=== PATIENT | female | born 1970 | race American Indian/Alaskan Native ===

== ENCOUNTER 2020-06-27 21:16 | Emergency (ER) | payer MEDICARE, MEDICAID ==
[~2020-06-27] VITALS: Ht 165.1 cm; Wt 77.3 kg
[2020-06-27 21:31] VITALS: BP 154/91
== END 2020-06-28 00:21 | disposition home or self-care (01) ==
LOC: ER 21:17
DX: B34.9 Viral infection, unspecified (principal); Z20.822 Contact with and (suspected) exposure to COVID-19; R50.9 Fever, unspecified; R51.9 Headache, unspecified
CPT/HCPCS: 87635; 99283; C9803

== ENCOUNTER 2022-08-21 20:32 | Emergency (ER) | payer MEDICARE, MEDICAID ==
[~2022-08-21] VITALS: Ht 165.1 cm; Wt 86.4 kg
[2022-08-21 22:35] VITALS: BP 135/88
== END 2022-08-21 22:36 | disposition home or self-care (01) ==
LOC: ER 20:33
DX: R51.9 Headache, unspecified (principal); R55 Syncope and collapse
CPT/HCPCS: 70450; 99284

== ENCOUNTER 2022-09-01 05:33 | Emergency (ER) | payer MEDICARE, MEDICAID ==
[~2022-09-01] VITALS: Ht 165.1 cm; Wt 84.1 kg
[2022-09-01] MEDS ORDERED: dexamethasone sod phosphate 10mg/ml inj IV STA (07:01)
[2022-09-01] MEDS ORDERED: ketorolac trometh. 30mg/ml inj. IV ONE (07:05)
[2022-09-01] MEDS ORDERED: LORazepam 2 mg/ml vial IV ONE (07:05)
[2022-09-01] MEDS ORDERED: clindamycin-Cleocin 900mg/D5W 50 ML IV ONE (07:05)
[2022-09-01 07:57] LABS: BASOPHILS # (AUTO) 0.1 X10'3 (0-0.2); BASOPHILS % (AUTO) 0.9 % (0-1); EOSINOPHILS # (AUTO) 0.2 X10'3 (0-0.9); EOSINOPHILS % (AUTO) 2.1 % (0-6); HEMATOCRIT 41.6 % (35.0-45.0); HEMOGLOBIN 13.9 g/dl (12.0-16.0); LYMPHOCYTES # (AUTO) 2.8 X10'3 (1.1-4.8); LYMPHOCYTES % (AUTO) 31.8 % (21-51); MEAN CORPUSCULAR HEMOGLOBIN 29.8 PG (27.0-31.0); MEAN CORPUSCULAR HGB CONC 33.4 g/dL (33.0-36.5); MEAN CORPUSCULAR VOLUME 89.1 FL (78-98); MEAN PLATELET VOLUME 7.2 FL (7.4-10.4); MONOCYTES # (AUTO) 0.9 X10'3 (0-0.9); MONOCYTES % (AUTO) 9.8 % (2-12); NEUTROPHILS # (AUTO) 4.8 X10'3 (1.8-7.7); NEUTROPHILS % (AUTO) 55.4 % (42-75); PLATELET COUNT 305 X10'3 (140-440); RED BLOOD COUNT 4.67 X10'6 (4.20-5.60); RED CELL DISTRIBUTION WIDTH 14.7 % (11.5-14.5); WHITE BLOOD COUNT 8.7 X10'3 (4.5-11.0)
[2022-09-01 08:09] LABS: ALBUMIN 3.8 G/DL (3.4-5.0); ANION GAP 11 (8-16); BLOOD UREA NITROGEN 8 MG/DL (7-18); CHLORIDE 98 MMOL/L (99-107); GLUCOSE 107 MG/DL (70-104); SODIUM 137 MMOL/L (135-145); TOTAL CARBON DIOXIDE 28.3 MMOL/L (24-32); eGFR 75 ML/MIN
[2022-09-01 08:39] VITALS: BP 155/84
[2022-09-01] MEDS ORDERED: HYDR-3965 PO (10:19)
[2022-09-01] MEDS ORDERED: CLIN300C54 PO (10:19)
[2022-09-01] MEDS ORDERED: PRED20TA PO (10:19)
== END 2022-09-01 10:31 | disposition home or self-care (01) ==
LOC: ER 05:33
DX: R60.0 Localized edema (principal); K04.7 Periapical abscess without sinus; F15.10 Other stimulant abuse, uncomplicated
CPT/HCPCS: 36415; 71045; 80048; 83880; 84484; 85025; 93005; 96365; 96375; 99285; J1100; J1885; J2060; J3490

== ENCOUNTER 2023-09-23 11:17 | Emergency (ER) | payer MEDICARE, BC, MEDICAID ==
[~2023-09-23] VITALS: Ht 165.1 cm; Wt 107.7 kg
[~2023-09-23 11:17] MED LIST: IBUP-1986 PO
[2023-09-23 11:34] VITALS: TEMP 97.6
[2023-09-23 13:32] LABS: BASOPHILS % (AUTO) 0.7 % (0-1); EOSINOPHILS # (AUTO) 0.1 X10'3 (0-0.9); EOSINOPHILS % (AUTO) 1.6 % (0-6); HEMOGLOBIN 14.5 g/dl (12.0-16.0); LYMPHOCYTES # (AUTO) 1.8 X10'3 (1.1-4.8); LYMPHOCYTES % (AUTO) 41.7 % (21-51); MEAN CORPUSCULAR HEMOGLOBIN 29.9 PG (27.0-31.0); MEAN CORPUSCULAR VOLUME 90.7 FL (78-98); MEAN PLATELET VOLUME 7.2 FL (7.4-10.4); MONOCYTES # (AUTO) 0.4 X10'3 (0-0.9); MONOCYTES % (AUTO) 9.1 % (2-12); NEUTROPHILS # (AUTO) 2.1 X10'3 (1.8-7.7); NEUTROPHILS % (AUTO) 46.9 % (42-75); PLATELET COUNT 284 X10'3 (140-440); RED BLOOD COUNT 4.85 X10'6 (4.20-5.60); RED CELL DISTRIBUTION WIDTH 16.1 % (11.5-14.5); WHITE BLOOD COUNT 4.4 X10'3 (4.5-11.0)
[2023-09-23 13:40] VITALS: BP 129/72; PULSE 73; RESP 16; O2SAT 99
[2023-09-23 13:52] LABS: ALBUMIN 3.2 G/DL (3.4-5.0); ANION GAP 3 (8-16); BLOOD UREA NITROGEN 10 MG/DL (7-18); BUN/CREATININE RATIO 13.2 (10.0-20.0); CALCIUM 8.9 MG/DL (8.5-10.1); CHLORIDE 104 MMOL/L (99-107); CREATININE 0.76 MG/DL (0.40-0.90); FREE T4 (FREE THYROXINE) 0.53 NG/DL (0.73-1.40); GLUCOSE 151 MG/DL (70-104); POTASSIUM 3.7 MMOL/L (3.5-5.1); SODIUM 141 MMOL/L (135-145); THYROID STIMULATING HORMONE 30.27 ulU/ml (0.34-4.50); TOTAL CARBON DIOXIDE 33.6 MMOL/L (24-32); eCRCL 75 ML/MIN; eGFR 79 ML/MIN
[2023-09-23] MEDS ORDERED: LEVO50CA4 PO (14:20)
[2023-09-23] MEDS ORDERED: PRED10TA23 PO (14:20)
== END 2023-09-23 14:34 | disposition home or self-care (01) ==
LOC: ER 11:18
DX: E03.9 Hypothyroidism, unspecified (principal); F15.90 Other stimulant use, unspecified, uncomplicated; Z79.1 Long term (current) use of non-steroidal anti-inflammatories (NSAID); Z79.2 Long term (current) use of antibiotics
CPT/HCPCS: 36415; 80048; 84439; 84443; 85025; 99283

== ENCOUNTER 2023-11-04 12:00 | Emergency (ER) | payer BC, MEDICAID ==
[~2023-11-04] VITALS: Ht 172.7 cm; Wt 103.5 kg
[~2023-11-04 12:00] MED LIST changes: +LEVO50CA4 PO
[2023-11-04 12:28] VITALS: BP 158/76; PULSE 87; RESP 18; TEMP 97.8; O2SAT 96
== END 2023-11-04 14:15 | disposition left against medical advice (07) ==
LOC: ER 12:01
DX: E07.9 Disorder of thyroid, unspecified (principal); Z53.21 Procedure and treatment not carried out due to patient leaving prior to being seen by health care provider

== ENCOUNTER → 2024-04-05 | Day surgery (SDC) | payer BC, MEDICAID ==
[2024-03-31 14:25] LABS: BASOPHILS % (AUTO) 0.7 % (0-1); EOSINOPHILS # (AUTO) 0.1 X10'3 (0-0.9); EOSINOPHILS % (AUTO) 1.2 % (0-6); LYMPHOCYTES # (AUTO) 2.3 X10'3 (1.1-4.8); LYMPHOCYTES % (AUTO) 35.6 % (21-51); MEAN CORPUSCULAR HEMOGLOBIN 30.9 PG (27.0-31.0); MEAN CORPUSCULAR HGB CONC 34.1 g/dL (33.0-36.5); MEAN CORPUSCULAR VOLUME 90.5 FL (78-98); MEAN PLATELET VOLUME 6.6 FL (7.4-10.4); MONOCYTES # (AUTO) 0.4 X10'3 (0-0.9); MONOCYTES % (AUTO) 6.4 % (2-12); NEUTROPHILS # (AUTO) 3.6 X10'3 (1.8-7.7); NEUTROPHILS % (AUTO) 56.1 % (42-75); PRE OP HEMATOCRIT 44.1 % (35.0-45.0); PRE OP PLATELET COUNT 371 X10'3 (140-440); PRE OP WHITE BLOOD COUNT 6.4 10'3 (4.8-10.8); RED BLOOD COUNT 4.88 X10'6 (4.20-5.60); RED CELL DISTRIBUTION WIDTH 14.6 % (11.5-14.5)
[2024-03-31 14:58] LABS: ALBUMIN 3.8 G/DL (3.4-5.0); ALBUMIN/GLOBULIN RATIO 0.7 (1.1-1.5); ALKALINE PHOSPHATASE 96 IU/L (46-116); BLOOD UREA NITROGEN 8 MG/DL (7-18); BUN/CREATININE RATIO 10.1 (10.0-20.0); CALCIUM 8.7 MG/DL (8.5-10.1); CHLORIDE 101 MMOL/L (99-107); CREATININE 0.79 MG/DL (0.40-0.90); PRE OP ALT 49 U/L (30-65); PRE OP ANION GAP 5 (8-16); PRE OP AST 21 U/L (10-37); PRE OP BILIRUB, TOTAL 0.3 MG/DL (0.0-1.0); PRE OP POTASSIUM 3.5 MMOL/L (3.4-5.1); PRE OP SODIUM 139 MMOL/L (135-145); TOTAL CARBON DIOXIDE 32.8 MMOL/L (24-32); TOTAL PROTEIN 8.9 G/DL (6.4-8.2); eGFR 76 ML/MIN
[2024-03-31 15:08] LABS: PRE OP GLUCOSE 124 MG/DL (70-104)
[~2024-04-05] VITALS: Ht 165.1 cm; Wt 102.2 kg
[~2024-04-05] MED LIST changes: +BUPIVACAINE/MELOXICAM 14 ML VIAL IL ONE; -IBUP-1986 PO; +IXEK80AU2 IM; -LEVO50CA4 PO; +ROPIVAcaine 0.5% (5mg/ml) 30ml vial ONE; +VANCOMYCIN/H2O 1.5g/300mL PB 300 ML IV ONE; +VARE1TAB29 PO; +ceFAZolin 2gm in dextrose, iso 50 ML IV ONE; +famotidine 20mg tablet PO ONE; +mineral oil 10ml sterile, topical TP ONE; +ringers solution, lacted 1,000 ML IV SCH; +tranexamic acid 650mg tablet PO ONE
[2024-04-05] MEDS: ceFAZolin 2gm in dextrose, iso 50 ML IV ONE (05:30)
[2024-04-05 08:45] VITALS: BP 151/93; PULSE 78; RESP 16; TEMP 96.7; O2SAT 98
[2024-04-05] MEDS: famotidine 20mg tablet PO ONE (09:02)
[2024-04-05] MEDS: tranexamic acid 650mg tablet PO ONE (09:03)
[2024-04-05] MEDS: VANCOMYCIN/H2O 1.5g/300mL PB 300 ML IV ONE (09:06)
[2024-04-05] MEDS: ringers solution, lacted 1,000 ML IV SCH (09:06)
== END | disposition home or self-care (01) ==
LOC: PAS 08:33
PROVIDERS: ATTEND Orthopaedic Surgery
DX: M17.11 Unilateral primary osteoarthritis, right knee (principal); Z53.8 Procedure and treatment not carried out for other reasons; E03.9 Hypothyroidism, unspecified; F41.9 Anxiety disorder, unspecified; F32.A Depression, unspecified; E66.9 Obesity, unspecified; Z88.5 Allergy status to narcotic agent; Z98.891 History of uterine scar from previous surgery; Z96.652 Presence of left artificial knee joint; Z87.891 Personal history of nicotine dependence; Z87.442 Personal history of urinary calculi; Z98.890 Other specified postprocedural states; Z79.899 Other long term (current) drug therapy
CPT/HCPCS: 36415; 80053; 82948; 85025; 87070; 87075; 87077; 87081; 87186; C9088; J3372; J7120; J0690; J2795

== ENCOUNTER 2024-07-06 12:01 | Emergency (ER) | payer BC, MEDICAID ==
[~2024-07-06] VITALS: Ht 165.1 cm; Wt 104.9 kg
[~2024-07-06 12:01] MED LIST changes: -BUPIVACAINE/MELOXICAM 14 ML VIAL IL ONE; -ROPIVAcaine 0.5% (5mg/ml) 30ml vial ONE; -VANCOMYCIN/H2O 1.5g/300mL PB 300 ML IV ONE; -ceFAZolin 2gm in dextrose, iso 50 ML IV ONE; -famotidine 20mg tablet PO ONE; -mineral oil 10ml sterile, topical TP ONE; -ringers solution, lacted 1,000 ML IV SCH; -tranexamic acid 650mg tablet PO ONE
[2024-07-06 12:02] VITALS: TEMP 98.2
[2024-07-06 12:31] LABS: BILIRUBIN,URINE NEGATIVE (Neg); CLARITY,URINE CLOUDY (Clear); COLOR,URINE YELLOW (Yellow); GLUCOSE, URINE NEGATIVE (Neg); KETONES,URINE NEGATIVE (Neg); LEUKOCYTE ESTERASE ,URINE NEGATIVE (Neg); NITRITES, URINE NEGATIVE (Neg); OCCULT BLOOD,URINE LARGE (Neg); PROTEIN,URINE NEGATIVE (Neg); UROBILINOGEN,URINE 0.2 E.U/dL (0.2-1.0)
[2024-07-06 12:34] LABS: UA COLLECTION TYPE CLN CATCH MIDSTREAM; URINE HCG NEGATIVE (NEG)
[2024-07-06 12:34] LABS: BASOPHILS # (AUTO) 0.1 X10'3 (0-0.2); EOSINOPHILS # (AUTO) 0.1 X10'3 (0-0.9); EOSINOPHILS % (AUTO) 1.9 % (0-6); HEMATOCRIT 43.3 % (35.0-45.0); HEMOGLOBIN 14.7 g/dl (12.0-16.0); LYMPHOCYTES # (AUTO) 3.7 X10'3 (1.1-4.8); LYMPHOCYTES % (AUTO) 55.4 % (21-51); MEAN CORPUSCULAR HGB CONC 34.1 g/dL (33.0-36.5); MEAN PLATELET VOLUME 6.7 FL (7.4-10.4); MONOCYTES # (AUTO) 0.5 X10'3 (0-0.9); MONOCYTES % (AUTO) 7.4 % (2-12); NEUTROPHILS # (AUTO) 2.3 X10'3 (1.8-7.7); NEUTROPHILS % (AUTO) 34.3 % (42-75); PLATELET COUNT 357 X10'3 (140-440); RED BLOOD COUNT 4.92 X10'6 (4.20-5.60); RED CELL DISTRIBUTION WIDTH 14.2 % (11.5-14.5); WHITE BLOOD COUNT 6.8 X10'3 (4.5-11.0)
[2024-07-06] MEDS ORDERED: iohexol 300mg/ml 100ml inj. ONE (12:34)
[2024-07-06 12:49] LABS: BACTERIA,URINE 1+ /HPF (Neg); RBC,URINE TNTC /HPF (0-2); SQUAMOUS EPITHELIAL CELL,UR FEW /LPF (FEW); WBC,URINE 0-4 /HPF (0-4)
[2024-07-06 12:58] LABS: PLATELET ESTIMATE NORMAL; TOTAL CELLS COUNTED 100
[2024-07-06] MEDS: ketorolac trometh 15mg/ml vial 15 MG/ML ML IV ONE (13:07)
[2024-07-06] MEDS: ondansetron/PF 4mg/2ml inj IV PRN (13:07)
--- NOTE | 2024-07-06 13:07 | Physician Documentation ---
History of Present Illness Chief Complaint: Flank Pain Stated Complaint: POSS KIDNEY STONES Time Seen by MD: 12:42 HPI This is a 54-year-old female with a distant history of kidney stone who presents with one day of left flank pain radiating to her left groin, patient reports no fever, dysuria, or difficulty urinating. Patient reports pain is better with heat. Patient reports mild nausea without vomiting. Patient reports no other acute symptoms or concerns. Medication Reconciliation Allergies: Coded Allergies: codeine (Verified Allergy, Unknown, GI UPSET, 04/02/24) Scheduled Ibuprofen (Ibuprofen), 1 TAB PO Q8H Ixekizumab (Taltz Autoinjector), 80 MG IM Q28D, (Reported) Silodosin (Rapaflo), 1 CAP PO DAILY Varenicline Tartrate (Varenicline), 1 TAB PO BID, (Reported) Past Medical History Past Medical History: No Pertinent History Past Surgical History: noncontributory Drug Use: methamphetamine, other Lives In: Home Occupation: unemployed Review of Systems ROS Left flank pain as stated above in the HPI, otherwise all systems are reviewed and negative. Physical Exam Vital Signs: Temperature: 98.2, Source: Oral, Heart Rate: 92, Respiratory Rate: 16, BP: 205/127, Pulse Oximetry: 98, Weight: 104.900 Oxygen Flow Rate: 0 Physical Exam VITALS: Reviewed and as above. GENERAL: Alert, nontoxic appearing, no apparent distress. RESPIRATORY: No increased work of breathing, no respiratory distress, speaking in full clear sentences, lung sounds clear in all [place] CV: Regular rate and rhythm no murmur BACK: No CVA tenderness GI: Nondistended, soft, nontender, no rebound, no guarding Progress Results/Orders Results/Orders Orders - DANETTE MARCELO Ondansetron Inj. (Zofran 4mg/2ml Vial) (07/06/24 12:55) Completed Orders - DANETTE MARCELO Ketorolac Trometh 15mg/Ml Vial (Toradol (07/06/24 12:55) Vital Signs 07/06/24 12:02 Temp 98.2 Pulse 92 Resp 16 B/P (MAP) 205/127 Pulse Ox 98 O2 Flow Rate 0 Laboratory Tests Test 07/06/24 12:06 07/06/24 12:23 Urine Specimen Description Cln catch midstream Urine Color Yellow Urine Clarity Cloudy Urine pH 6.0 Urine Specific [place] 1.025 Urine Protein Negative Urine Glucose (UA) Negative Urine Ketones Negative Urine Occult Blood Large H Urine Nitrite Negative Urine Bilirubin Negative Urine Urobilinogen 0.2 Urine Leukocyte Esterase Negative Urine RBC Tntc Urine WBC 0-4 Urine Squamous Epithelial Cells Few Urine Bacteria 1+ Urine Culture Indicated Not ind Volume Urine Centrifuged 10 ml Urine HCG, Qualitative Negative Urine Comment White Blood Count 6.8 Red Blood Count 4.92 Hemoglobin 14.7 Hematocrit 43.3 Mean Corpuscular Volume 88.0 Mean Corpuscular Hemoglobin 30.0 Mean Corpuscular Hemoglobin Concent 34.1 Red Cell Distribution Width 14.2 Platelet Count 357 Mean Platelet Volume 6.7 L Neutrophils (%) (Auto) 34.3 L Lymphocytes (%) (Auto) 55.4 H Monocytes (%) (Auto) 7.4 Eosinophils (%) (Auto) 1.9 Basophils (%) (Auto) 1.0 Neutrophils # (Auto) 2.3 Lymphocytes # (Auto) 3.7 Monocytes # (Auto) 0.5 Eosinophils # (Auto) 0.1 Basophils # (Auto) 0.1 CBC Comment Differential Total Cells Counted 100 Neutrophils % (Manual) 37.0 L Lymphocytes % (Manual) 55.0 H Monocytes % (Manual) 7.0 Eosinophils % (Manual) 1.0 Platelet Estimate Normal Red Blood Cell Morphology Normal Basophilic Stippling Chemistry Comments EKG/XRAY/CT/US/VASC/MRI CT : Impression Exam: CT ABDOMEN PELVIS Exam: CT CT ABDOMEN PELVIS W/ IV CONTRAST History: flank pain COMPARISON: None Technique: Multidetector spiral CT of the abdomen and pelvis was performed from lung bases to pubic symphysis. Intravenous contrast was administered during this examination. Portal venous imaging was obtained. Axial, coronal and sagittal multiplanar reformats were performed by the technologist on a separate workstation. Radiation Dose : Abdomen/Pelvis: CTDIvol 32 mGy, DLP 1680 mGy*cm. CONTRAST: Type of contrast: Omni 300 Contrast injected: 100 mL Findings: Lung Bases: No acute or significant lung base finding. Normal heart size. No pleural or pericardial effusion. Liver: Patchy diffuse hepatic steatosis. Gallbladder and biliary Tree: Gallbladder is contracted. Common bile duct is dilated measuring up to 10 mm. Spleen: Unremarkable Pancreas: The pancreas is normal in appearance without focal lesions or abnormal enhancement. Adrenal Glands: Unremarkable Kidneys: Mild left hydronephrosis and hydroureter with a punctate obstructing calculus at the left ureterovesicular junction. No right hydronephrosis. Bladder: Unremarkable Bowel: The stomach is grossly normal in appearance. Small bowel and colon are normal in caliber and distribution. The appendix is not visualized; however, no secondary findings of acute appendicitis identified. Sigmoid diverticulosis. Ascites: Absent Lymphadenopathy: Subcentimeter iliac chain and inguinal lymph nodes noted. Abdominal wall and Mesentery: Unremarkable. Vasculature: The visualized abdominal aorta is normal in size and caliber. There is calcified atherosclerotic plaque involving the aorta and its branches. Abdominal and pelvic vessels demonstrate normal enhancement. Pelvic Organs: Unremarkable Musculoskeletal: No aggressive focal bony lesions, acute fractures or dis location. IMPRESSION: 1. Mild left hydronephrosis and hydroureter with a obstructing calculus at the left ureterovesicular junction measuring less than 2 mm. Urology evaluation is recommended. 2. Patchy diffuse hepatic steatosis. Common bile duct is dilated. Correlate with serum bilirubin. Sigmoid diverticulosis. Mildly prominent iliac chain and inguinal lymph nodes are nonspecific. Radiation optimization: All CT scans at this facility use at least one of these dose optimization techniques: Automated exposure control mA and/or kV adjustment per patient size (includes targeted exams where dose is matched to clinical indication) or iterative reconstruction. HS:Y Electronically Signed by:FARSHAD CHINO MD Date & Time: 07/06/241345 Dictated by: FARSHAD CHINO MD Dictation date and time: 07/06/24 1346 I have reviewed and agree with the radiology report. I have reviewed and interpreted the imaging as: No intraperitoneal free air Medical Decision Making Findings This 54-year-old female with distant history of kidney stones presented with one day of left-sided flank pain without fever or dysuria, a CT of the abdomen and pelvis was obtained and did demonstrate an obstructing stone at the left ureterovesicular junction with mild hydronephrosis and hydroureter. Incidental finding of dilation of common bile duct not felt to be clinically significant as patient is not experiencing upper abdominal pain, there was no tenderness to right upper quadrant, and bilirubin is not elevated. Urinalysis did demonstrate evidence of hematuria which is consistent with kidney stone passage though did not demonstrate evidence of infection. Remainder of labs did not demonstrate significant electrolyte or metabolic derangement or evidence of systemic infection. Remainder of physical exam was benign and patient was hemodynamically stable. Patient was initially take quite hypertensive however repeat measurements demonstrate elevated but not emergently elevated blood pressure attributed to acute pain. Patient reported adequate decrease in pain after medication. Patient is appropriate for outpatient follow up. Patient to be discharged to follow up with Urology, patient discharged with prescription for medical expulsive therapy and pain management. Patient provided careful return to care precautions which she verbalized understanding of. Differential Dx:Considerations: Include: Aortic dissection, Appendicitis, Cholangitis, Cholelithasis, Gastroenteritis, Ischemic bowel, Urinary obstruction, Urinary tract infection, Other (Acute kidney injury, pyelonephritis) Departure Time of Disposition: 14:39 Disposition: HOME / SELF CARE / HOMELESS Impression: Primary Impression: Urolithiasis Qualified Codes: N20.1 - Calculus of ureter Condition: Improved Discharge Instructions: Kidney Stones Additional Instructions: Please follow up with the urologist at the number provided. Please take the prescribed silodosin to help pass the kidney stone. Please use the prescribed ibuprofen as needed for pain you may also add Tylenol to the prescribed ibuprofen as needed as directed by the [id number] package directions. There were some incidental findings related to liver disease on your CT scan, please follow up with her primary care provider for further evaluation. Please follow up with your primary care provider in the next few days. Please return to the emergency department for any new or worsening concerning symptoms including but not limited to if you develop a fever. Referrals: NO PRIMARY CARE PROVIDER (PCP) Prescriptions Ibuprofen (Ibuprofen) 800 Mg Tablet 1 TAB PO Q8H for pain for 14 Days, #42 TAB 0 Refills Prov: DANETTE MARCELO 07/06/24 Silodosin (Rapaflo) 8 Mg Capsule 1 CAP PO DAILY for 30 Days, #30 CAP 0 Refills Prov: DANETTE MARCELO 07/06/24 Education Educated: Patient Educated regarding: diagnosis, treatment, prognosis, need for follow up Signature Scribe Signature: No scribe Attestation: The note accurately reflects work and decisions made by me.EDILMA Squires 07/06/24 22:05 DANETTE MARCELO July 06, 2024 13:07
--- NOTE | 2024-07-06 13:48 | RADIOLOGY REPORT ---
Exam: CT CT ABDOMEN PELVIS W/ IV CONTRAST History: flank pain COMPARISON: None Technique: Multidetector spiral CT of the abdomen and pelvis was performed from lung bases to pubic symphysis. Intravenous contrast was administered during this examination. Portal venous imaging was obtained. Axial, coronal and sagittal multiplanar reformats were performed by the technologist on a separate workstation. Radiation Dose : Abdomen/Pelvis: CTDIvol 32 mGy, DLP 1680 mGy*cm. CONTRAST: Type of contrast: Omni 300 Contrast injected: 100 mL Findings: Lung Bases: No acute or significant lung base finding. Normal heart size. No pleural or pericardial effusion. Liver: Patchy diffuse hepatic steatosis. Gallbladder and biliary Tree: Gallbladder is contracted. Common bile duct is dilated measuring up to 10 mm. Spleen: Unremarkable Pancreas: The pancreas is normal in appearance without focal lesions or abnormal enhancement. Adrenal Glands: Unremarkable Kidneys: Mild left hydronephrosis and hydroureter with a punctate obstructing calculus at the left ureterovesicular junction. No right hydronephrosis. Bladder: Unremarkable Bowel: The stomach is grossly normal in appearance. Small bowel and colon are normal in caliber and d istribution. The appendix is not visualized; however, no secondary findings of acute appendicitis sosa ntified. Sigmoid diverticulosis. Ascites: Absent Lymphadenopathy: Subcentimeter iliac chain and inguinal lymph nodes noted. Abdominal wall and Mesentery: Unremarkable. Vasculature: The visualized abdominal aorta is normal in size and caliber. There is calcified atheros clerotic plaque involving the aorta and its branches. Abdominal and pelvic vessels demonstrate normal enhancement. Pelvic Organs: Unremarkable Musculoskeletal: No aggressive focal bony lesions, acute fractures or dislocation. IMPRESSION: 1. Mild left hydronephrosis and hydroureter with a obstructing calculus at the left ureterovesicular junction measuring less than 2 mm. Urology evaluation is recommended. 2. Patchy diffuse hepatic steatosis. Common bile duct is dilated. Correlate with serum bilirubin. Si gmoid diverticulosis. Mildly prominent iliac chain and inguinal lymph nodes are nonspecific. Radiation optimization: All CT scans at this facility use at least one of these dose optimization jak hniques: Automated exposure control mA and/or kV adjustment per patient size (includes targeted exams where dose is matched to clinical indication) or iterative reconstruction. HS:Y
[2024-07-06 14:13] LABS: ALANINE AMINOTRANSFERASE 52 U/L (12-78); ALBUMIN 3.9 G/DL (3.4-5.0); ALBUMIN/GLOBULIN RATIO 0.8 (1.1-1.5); ALKALINE PHOSPHATASE 94 IU/L (46-116); ANION GAP 10 (8-16); ASPARTATE AMINO TRANSFERASE 44 U/L (10-37); BILIRUBIN,TOTAL 0.4 MG/DL (0.1-1.0); BLOOD UREA NITROGEN 12 MG/DL (7-18); BUN/CREATININE RATIO 12.4 (10.0-20.0); CALCIUM 9.2 MG/DL (8.5-10.1); CHLORIDE 101 MMOL/L (99-107); CREATININE 0.97 MG/DL (0.40-0.90); GLUCOSE 126 MG/DL (70-104); LIPASE 20 U/L (16-77); POTASSIUM 3.6 MMOL/L (3.5-5.1); SODIUM 138 MMOL/L (135-145); TOTAL CARBON DIOXIDE 27.4 MMOL/L (24-32); TOTAL PROTEIN 8.7 G/DL (6.4-8.2); eCRCL 58 ML/MIN; eGFR 59 ML/MIN
[2024-07-06] MEDS ORDERED: SILO8CAP2 PO (14:48)
[2024-07-06] MEDS ORDERED: IBUP-1986 PO (14:48)
[2024-07-06 15:08] VITALS: BP 155/93; PULSE 87; RESP 15; O2SAT 96
== END 2024-07-06 15:10 | disposition home or self-care (01) ==
LOC: ER 12:01
DX: N20.9 Urinary calculus, unspecified (principal); Z88.5 Allergy status to narcotic agent
CPT/HCPCS: 36415; 74177; 80053; 81001; 81025; 83690; 85025; 96374; 96375; 99285; J1885; J2405; Q9967; 85007